=== PATIENT | male | born 1965 | race Two or more races ===

== ENCOUNTER 2018-03-06 19:22 | Emergency (ER) | payer MEDICAID ==
[~2018-03-06] VITALS: Ht 175.3 cm; Wt 72.6 kg
[2018-03-06 19:28] VITALS: BP 155/88
[2018-03-06] MEDS ORDERED: IBUPROFEN 600 MG TABLET PO ONE ×2 (20:30→20:37)
--- NOTE | 2018-03-06 20:39 | NUR ---
ADMINISTERED MOTRIN 600MG PO. Pt IS SITTING IN CHAIR. NO S/S OF ACUTE DISTRESS OR SOB NOTED.
--- NOTE | 2018-03-06 21:35 | NUR ---
applied splint frog baseball med on pt's right thumb.
--- NOTE | 2018-03-06 21:37 | NUR ---
Patient discharged to home in stable condition. Written and verbal after care instructions given. Patient verbalizes understanding of instruction. Patient left with right thumb finger splint in place. Patient left facility on foot with steady gait. No s/s of acute distress or sob noted. No iv access. ID band removed.
== END 2018-03-06 21:47 | disposition home or self-care (01) ==
LOC: ER 19:24
DX: S62.521A Displaced fracture of distal phalanx of right thumb, initial encounter for closed fracture (principal); F17.200 Nicotine dependence, unspecified, uncomplicated; Z60.2 Problems related to living alone; W26.8XXA Contact with other sharp object(s), not elsewhere classified, initial encounter; Y93.89 Activity, other specified; Y92.89 Other specified places as the place of occurrence of the external cause; Y99.8 Other external cause status
CPT/HCPCS: 73130-TC; A4606; Z7610

== ENCOUNTER 2018-08-26 18:23 | Emergency (ER) | payer MEDICAID, OTHER ==
[~2018-08-26] VITALS: Ht 175.3 cm; Wt 83.5 kg
[2018-08-26 18:36] VITALS: BP 124/68
== END 2018-08-26 18:48 | disposition home or self-care (01) ==
LOC: ER 18:23
DX: L72.0 Epidermal cyst (principal); E11.9 Type 2 diabetes mellitus without complications; F17.200 Nicotine dependence, unspecified, uncomplicated; Z60.2 Problems related to living alone

== ENCOUNTER 2018-12-31 17:10 | Emergency (ER) | payer SELFPAY ==
[~2018-12-31] VITALS: Ht 175.3 cm; Wt 70.3 kg
--- NOTE | 2018-12-31 17:30 | NUR ---
PATIENT CAME IN TO THE ER C/O L AXILLARY AREA PAIN AND DRAINAGE FROM ABSCESS X 1 WEEK. ON ROOM AIR, BREATHING EVENLY AND UNLABORED. CONNECTED TO THE MONITOR AND PULSE OX. KEPT COMFORTABLE, WILL CONTINUE TO MONITOR ACCORDINGLY.
[2018-12-31] MEDS ORDERED: LIDOCAINE 1%-EPI 1:100,000 20 ML VIAL TP ONE (18:00)
[2018-12-31] MEDS ORDERED: CEPHALEXIN MONOHYDRATE 500 MG CAPSULE PO ONE ×2 (18:00→18:07)
[2018-12-31] MEDS ORDERED: SULFAMETH/TRIMETH 800/160 MG 1 UDTAB TABLET PO ONE (18:00)
[2018-12-31] MEDS ORDERED: KETOROLAC TROMETHAMINE INJ 30 MG/ML VIAL IV ONE (18:00)
[2018-12-31] MEDS ORDERED: LIDOCAINE 1%-EPI 1:100,000 20 ML VIAL ONE (18:00)
[2018-12-31] MEDS ORDERED: IV NS 0.9% 1,000 ML BAG IV ONE (18:00)
[2018-12-31] MEDS ORDERED: KETOROLAC TROMETHAMINE INJ 30 MG/ML VIAL ONE (18:06)
[2018-12-31] MEDS ORDERED: SULFAMETH/TRIMETH 800/160 MG 1 UDTAB TABLET ONE (18:07)
[2018-12-31 18:36] VITALS: BP 145/81
--- NOTE | 2018-12-31 19:28 | NUR ---
Patient discharged to home in stable condition. Written and verbal after care instructions given. Patient verbalizes understanding of instruction.IV removed. Catheter intact and site benign. Pressure and 4x4 applied to site. No bleeding noted.
== END 2018-12-31 19:29 | disposition home or self-care (01) ==
LOC: ER 17:10
DX: L02.412 Cutaneous abscess of left axilla (principal); E11.65 Type 2 diabetes mellitus with hyperglycemia; F17.200 Nicotine dependence, unspecified, uncomplicated; Z60.2 Problems related to living alone
CPT/HCPCS: 10060; 82962 ×3; 96361; 96374; 99283; A6403; A6407; J1885; J3490; J7030

== ENCOUNTER 2019-05-02 14:00 | Emergency (ER) | payer MEDICAID ==
[~2019-05-02] VITALS: Ht 175.3 cm; Wt 73.0 kg
[2019-05-02 14:00] VITALS: BP 126/75
[2019-05-02] MEDS ORDERED: LIDOCAINE 1%-EPI 1:100,000 20 ML VIAL ONE (14:09)
== END 2019-05-02 15:47 | disposition home or self-care (01) ==
LOC: ER 14:02
DX: L02.412 Cutaneous abscess of left axilla (principal); E11.9 Type 2 diabetes mellitus without complications; F17.200 Nicotine dependence, unspecified, uncomplicated; Z60.2 Problems related to living alone
CPT/HCPCS: 10060; 82962; 99283; A6407; J3490

== ENCOUNTER 2020-10-07 03:44 | Emergency (ER) | payer MEDICAID, OTHER ==
[~2020-10-07] VITALS: Ht 175.3 cm; Wt 73.0 kg
--- NOTE | 2020-10-07 04:00 | NUR ---
pt bibself c/o bloody diarrhea. pt aaox4 breathing evenly and unlabored. Per pt, he had a stomach ache today and drank a red juice, then he drank a tea that his friend gave him and he felt better. His last bout of diarrhea was at 0300 and pt denied seeing any blood. md at bedside. pt attached to monitor and pox.
--- NOTE | 2020-10-07 04:19 | NUR ---
lab at bedside
[2020-10-07 04:36] LABS: BASOPHILS % (AUTO) 0.6 % (0.0-2.0); EOSINOPHILS % (AUTO) 0.4 % (0.0-6.0); HEMATOCRIT 43 % (39-51); HEMOGLOBIN 14.8 g/dL (13.5-17.5); LYMPHOCYTES # (AUTO) 0.7 K/uL (0.8-4.8); LYMPHOCYTES % (AUTO) 9.1 % (20.0-44.0); MEAN CORPUSCULAR HGB CONC 35 g/dl (31.0-36.0); MEAN CORPUSCULAR VOLUME 91 fL (80-96); MONOCYTES # (AUTO) 0.3 K/uL (0.1-1.30); MONOCYTES % (AUTO) 3.6 % (2.0-12.0); NEUTROPHILS # (AUTO) 6.9 K/uL (1.8-8.9); NEUTROPHILS % (AUTO) 86.3 % (43.0-81.0); PLATELET COUNT (AUTO) 106 K/uL (150-450); RED BLOOD CELL COUNT(AUTO) 4.69 MIL/uL (4.5-6.0)
[2020-10-07 04:44] LABS: CALCIUM, SERUM 8.8 mg/dL (8.5-10.1); CREATININE 1.5 mg/dL (0.6-1.3); POTASSIUM 3.9 mmol/L (3.5-5.1)
--- NOTE | 2020-10-07 04:51 | NUR ---
Patient discharged to home in stable condition. Written and verbal after care instructions given. Patient verbalizes understanding of instruction.Pt ambulatory with a steady gait
[2020-10-07 05:00] VITALS: BP 130/74
== END 2020-10-07 04:51 | disposition home or self-care (01) ==
LOC: ER 03:44
DX: K92.1 Melena (principal); R19.7 Diarrhea, unspecified; E11.9 Type 2 diabetes mellitus without complications; F17.200 Nicotine dependence, unspecified, uncomplicated; Z60.2 Problems related to living alone
CPT/HCPCS: 36415; 80048-TC; 85025-TC

== ENCOUNTER 2021-08-17 16:35 | Emergency (ER) | payer MEDICAID, OTHER ==
--- NOTE | 2021-08-17 17:41 | NUR ---
DR BOLES AT BEDSIDE FOR I&D
[2021-08-17] MEDS ORDERED: LIDOCAINE 1%-EPI 1:100,000 20 ML VIAL ONE (17:43)
--- NOTE | 2021-08-17 17:50 | NUR ---
I&D DONE BY DR BOLES UNDER LOCAL ANESTHESIA. DRESSING APPLIED
[2021-08-17] MEDS ORDERED: LIDOCAINE 1%-EPI 1:100,000 20 ML VIAL TP ONE (18:00)
[2021-08-17] MEDS ORDERED: CLIN300C12 PO (18:13)
--- NOTE | 2021-08-17 18:22 | NUR ---
Patient discharged to home in stable condition. Written and verbal after care instructions given. Patient verbalizes understanding of instruction.
== END 2021-08-17 18:23 | disposition home or self-care (01) ==
LOC: ER 16:42
DX: L02.212 Cutaneous abscess of back [any part, except buttock and flank] (principal); E11.9 Type 2 diabetes mellitus without complications; F17.200 Nicotine dependence, unspecified, uncomplicated; Z60.2 Problems related to living alone; Z79.899 Other long term (current) drug therapy
CPT/HCPCS: 10060; 99283; J3490

== ENCOUNTER 2021-09-04 11:13 | Emergency (ER) | payer OTHER ==
[~2021-09-04] VITALS: Ht 175.3 cm; Wt 69.9 kg
[~2021-09-04 11:13] MED LIST: CLIN300C12 PO
[2021-09-04 11:15] VITALS: BP 91/53
--- NOTE | 2021-09-04 11:30 | NUR ---
BIBS W/ C/O MID-BACK ABSCESS. TO ER BED 1. AMBUALTORY W/ STEADY GAIT. A/O X4
[2021-09-04] MEDS ORDERED: CEPH500C2 PO (12:54)
[2021-09-04] MEDS ORDERED: SULF1TAB48 PO (12:54)
[2021-09-04] MEDS ORDERED: BACI/NEOM/POLY B OINT PKT 1 UDPKT PACKET TP ONE (13:00)
[2021-09-04] MEDS ORDERED: LIDOCAINE 1% INJ 50 ML MDV IJ ONE (13:00)
--- NOTE | 2021-09-04 13:01 | NUR ---
Patient discharged to home in stable condition. Written and verbal after care instructions given. Patient verbalizes understanding of instruction.
== END 2021-09-04 13:02 | disposition home or self-care (01) ==
LOC: ER 11:18
DX: L02.212 Cutaneous abscess of back [any part, except buttock and flank] (principal); E11.9 Type 2 diabetes mellitus without complications; F17.200 Nicotine dependence, unspecified, uncomplicated; Z60.2 Problems related to living alone; Z79.899 Other long term (current) drug therapy
CPT/HCPCS: 10060; 76536; 99284; A6403; A6407 ×2

== ENCOUNTER 2021-09-06 07:32 | Emergency (ER) | payer OTHER ==
[~2021-09-06] VITALS: Ht 175.3 cm; Wt 70.3 kg
[~2021-09-06 07:32] MED LIST changes: +CEPH500C2 PO; -CLIN300C12 PO; +SULF1TAB48 PO
[2021-09-06 09:18] VITALS: BP 132/74
== END 2021-09-06 09:10 | disposition home or self-care (01) ==
LOC: ER 07:32
DX: Z48.00 Encounter for change or removal of nonsurgical wound dressing (principal); L02.212 Cutaneous abscess of back [any part, except buttock and flank]; E11.9 Type 2 diabetes mellitus without complications; F17.200 Nicotine dependence, unspecified, uncomplicated; Z60.2 Problems related to living alone; Z79.899 Other long term (current) drug therapy

== ENCOUNTER 2021-09-25 13:01 | Emergency (ER) | payer MEDICAID, OTHER ==
[~2021-09-25] VITALS: Ht 175.3 cm; Wt 70.3 kg
--- NOTE | 2021-09-25 13:20 | NUR ---
BIBS W/ C/O MID BACK REDNESS AND PAIN X1YR, RATES PAIN 10/10. PT A/O X4, VERBALLY RESPONSIVE, AMBULATORY. TO ER BED 11.
--- NOTE | 2021-09-25 13:25 | NUR ---
DR ODOM AT BEDSIDE FOR EVAL
[2021-09-25] MEDS ORDERED: LIDOCAINE 1%-EPI 1:100,000 20 ML VIAL TP ONE (13:30)
[2021-09-25] MEDS ORDERED: LIDOCAINE 1%-EPI 1:100,000 20 ML VIAL ONE (13:36)
[2021-09-25 15:02] VITALS: BP 142/80
--- NOTE | 2021-09-25 15:28 | NUR ---
Patient eloped from facility. ER MD notified.
== END 2021-09-25 15:30 | disposition left against medical advice (07) ==
LOC: ER 13:05
DX: L02.212 Cutaneous abscess of back [any part, except buttock and flank] (principal); E11.9 Type 2 diabetes mellitus without complications; F17.200 Nicotine dependence, unspecified, uncomplicated; Z60.2 Problems related to living alone
CPT/HCPCS: 99284; 76536; A6403; J3490